=== PATIENT | female | born 1990 | race Caucasian/White ===

== ENCOUNTER → 2016-06-19 | Emergency (ER) | payer OTHER, SELFPAY ==
[~2016-06-19] VITALS: Ht 165.1 cm; Wt 99.8 kg
[~2016-06-19] MED LIST: AUGM875T27 PO; AUGMENTIN 875 MG TAB PO ONE; KEFL500C7 PO; MOTR200T44 PO; PERCOCET PO; TYLE325T5 PO
[2016-06-19 21:13] VITALS: BP 127/71
== END | disposition home or self-care (01) ==
LOC: M ED 20:58
DX: J02.0 Streptococcal pharyngitis (principal)

== ENCOUNTER 2019-09-01 21:43 | Emergency (ER) | payer OTHER, SELFPAY ==
[~2019-09-01] VITALS: Ht 165.1 cm; Wt 100.0 kg
[2019-09-01 21:43] VITALS: BP 141/80
[~2019-09-01 21:43] MED LIST changes: -AUGM875T27 PO; +AUGM875T28 PO; -AUGMENTIN 875 MG TAB PO ONE; +KEFL500C17 PO; -KEFL500C7 PO
[2019-09-01] MEDS ORDERED: AUGM500T34 PO (22:13)
[2019-09-01] MEDS ORDERED: AUGMENTIN 875 MG TAB PO ONE (22:15)
[2019-09-01] MEDS ORDERED: NORCO, ANEXSIA 5/325MG TABLET (HYDROcodone/ACETAMINOPHEN) PO ONE (22:15)
== END 2019-09-01 22:28 | disposition home or self-care (01) ==
LOC: M ED 21:43
DX: H60.91 Unspecified otitis externa, right ear (principal)

== ENCOUNTER 2021-06-07 11:13 | Emergency (ER) | payer OTHER ==
[~2021-06-07] VITALS: Ht 165.1 cm; Wt 109.9 kg
[~2021-06-07 11:13] MED LIST changes: +AUGM500T34 PO
[2021-06-07 11:14] VITALS: BP 130/74
[2021-06-07] MEDS ORDERED: ACET-907 PO (11:20)
[2021-06-07] MEDS ORDERED: IBUP200C25 PO (11:21)
[2021-06-07] MEDS ORDERED: AUGMENTIN 875 MG TAB PO ONE (13:05)
[2021-06-07] MEDS ORDERED: KETOROLAC 60MG 2ML VIAL IM ONE (13:05)
[2021-06-07] MEDS ORDERED: HYDR-3713 PO (13:19)
[2021-06-07] MEDS ORDERED: LIDO2SOL17 PO (13:19)
[2021-06-07] MEDS ORDERED: AMOX875T2 PO (13:19)
== END 2021-06-07 13:34 | disposition home or self-care (01) ==
LOC: M ED 11:13
DX: K02.9 Dental caries, unspecified (principal); S02.5XXA Fracture of tooth (traumatic), initial encounter for closed fracture; X58.XXXA Exposure to other specified factors, initial encounter; Y92.89 Other specified places as the place of occurrence of the external cause; Z88.1 Allergy status to other antibiotic agents; Z88.2 Allergy status to sulfonamides; Z88.8 Allergy status to other drugs, medicaments and biological substances; F17.210 Nicotine dependence, cigarettes, uncomplicated
CPT/HCPCS: 96372; 99282; J1885